=== PATIENT | female | born 1980 | race Caucasian/White ===

== ENCOUNTER 2022-04-25 09:48 | Emergency (ER) | payer OTHER, SELFPAY ==
[2022-04-25 09:51] VITALS: BP 136/69; PULSE 79; RESP 18; TEMP 36.5; O2SAT 95
--- NOTE | 2022-04-25 10:00 | DI.CT_ITS ---
Exam(s) CT HEAD WO EXAM: CT HEAD WO CLINICAL HISTORY: head pain s/p fall. TECHNIQUE: Imaging Protocol: Axial computed tomography images with coronal and sagittal reformatted images were created and reviewed COMPARISON: No exams were available for comparison FINDINGS: Ventricles and Extra axial spaces: Normal in size and morphology for the patient's age. Hemorrhage: None. Cerebral parenchyma: Normal. Midline shift: None. Brainstem/Cerebellum: Normal. Calvarium: Normal. Visualized Paranasal sinuses/Mastoids: Clear. Soft Tissues: Unremarkable. IMPRESSION: No acute intracranial process. RADIATION DOSE DELIVERED: 782.52mGy.cm Total DLP DATA REPOSITORY: All CT scans at this facility are submitted to the National Radiology Data Registry (NRDR) Dose Index Registry (DIR) with the [employer] (ACR). RADIATION OPTIMIZATION: All CT scans at this facility use at least one of these dose optimization te chniques: automated exposure control; mA and/or kV adjustment per patient size (includes targeted exa ms where dose is matched to clinical indication); or iterative reconstruction.
--- NOTE | 2022-04-25 10:09 | ED.GENADUL_ITS ---
Discharge Plan Disposition Patient Disposition: Home Condition: Stable Discharge Details Clinical Impression: Headache, Blunt head trauma ED Provider: Ton Smith Home Meds and New Rx's Prescriptions: Continued atorvastatin 40 mg tablet 1 tab PO HS Label Comments: TAKE 1 TABLET BY MOUTH AT BEDTIME clonidine HCl 0.1 mg tablet 1 tab PO BID PRN Label Comments: TAKE 1 TABLET BY MOUTH TWICE DAILY venlafaxine 75 mg capsule,extended release 24hr 1 cap PO DAILY Label Comments: TAKE 1 CAPSULE BY MOUTH DAILY gabapentin 600 mg tablet See Rx Instructions .ROUTE .COMPLEX Rx Instructions: Take 1 tab in AM, 2 tabs at HS lamotrigine 200 mg tablet 1 tab PO DAILY Label Comments: TAKE 1 TABLET BY MOUTH DAILY chlorzoxazone 500 mg tablet See Rx Instructions .ROUTE .COMPLEX Rx Instructions: Take 1 tab in the Am, 2 tabs at HS ondansetron HCl 4 mg tablet 1 tab PO Q8H PRN Label Comments: TAKE 1 TABLET BY MOUTH EVERY 8 HOURS NEEDED FOR NAUSEA OR VOMITING venlafaxine 150 mg capsule,extended release 24hr 1 cap PO DAILY Label Comments: TAKE 1 CAPSULE BY MOUTH DAILY lisinopril 10 mg tablet 1 tab PO DAILY losartan 25 mg tablet 1 tab PO DAILY Label Comments: TAKE 1 TABLET BY MOUTH ONCE DAILY hydroxyzine HCl 25 mg tablet 1 tab PO BID PRN Label Comments: TAKE 1 TABLET BY MOUTH TWICE DAILY NEEDED FOR ITCHING albuterol sulfate 90 mcg/actuation HFA aerosol inhaler 2 inh INHALATION 4-8XD PRN amitriptyline 100 mg tablet 1 tab PO QHS Label Comments: TAKE 1 TABLET BY MOUTH DAILY AT BEDTIME insulin lispro 100 unit/mL insulin pen See Rx Instructions .ROUTE .COMPLEX Label Comments: USE SLIDING SCALE DOSE AND INJECT SUBCUTANEOUSLY DIRECTED. MAXIMUM OF 14 UNITS 4 TIMES DAILY IF NEEDED Rx Instructions: sliding scale metoprolol tartrate 25 mg tablet 1 tab PO DAILY Label Comments: TAKE 1 TABLET BY MOUTH DAILY solifenacin 10 mg tablet 1 tab PO DAILY Label Comments: TAKE 1 TABLET BY MOUTH ONCE DAILY insulin glargine [Lantus Solostar U-100 Insulin] 100 unit/mL (3 mL) insulin pen 25 unit SUBCUT DAILY Label Comments: INJECT 25 UNITS SUBCUTANEOUSLY IN THE MORNING AT 9 AM oxycodone 10 mg tablet 1 tab PO BID PRN Label Comments: 10 mg orally 2 times per day As Needed for pain for 30 days Discharge Instructions Instructions: Head Injury (ED) Additional Instructions: your cat scan did not show concerning findings follow up with your primary care provider within 1 week if symptoms continue if you feel more ill, have persistent vomiting or severe worsening pain return to the emergency department Stand Alone Forms: Work Release Medical Decision Making 42 yo with hx of migraines, 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 Denies loc but has had a headache since and came here for an evaluation. Denies neck pain, chest pain, abdomen pain, dyspnea, fevers, chills. She arrives ambulatory speaking clearly, caox4 with no focal deficits. She localizes the pain to the frontal part of her head and has a small 1cm contusion of superior forehead. She has no stepoffs or other hematomas, perr, eomi, cn ii-xii intact, normal tm's, no midline neck tenderness. Suspect concussion and possible migraine. Will obtain ct head, treat with compazine and reassess. pt's pain resolved after compazine, ct head negative. Discussed with pt and stable for d/c, will f/u with pcp if pain continues, return precautions given Differential Diagnosis Differential Diagnosis: migraine, concussion, tbi Imaging Data Radiologic Study: Attestation: I personally reviewed and interpreted this imaging study as follows: Imaging: CT Scan Radiologist's impression: no acute findings HPI General Mode of arrival: ambulatory . Date/Time Provider Initiated Documentation: 04/25/22 09:48 . Limitations to Documentation: no limitations . Information obtained by: patient . History of Present Illness 42 year old F presents to the emergency department with the chief complaint of headache, described as moderate, Quality is described as aching, and is localized to the head. Patient reports no radiation. Patient started experiencing this day(s) (1) and it has been constant. No relieving factors improve symptom(s), No exacerbating factors reported . Patient notes other (nausea). Patient did receive the following treatments prior to arrival, none Related Data Home Medications Medication Instructions Recorded Confirmed albuterol sulfate 90 mcg/actuation 2 inh inhalation 4-8XD PRN 04/25/22 04/25/22 aerosol inhaler amitriptyline 100 mg tablet 1 tab PO QHS 04/25/22 04/25/22 atorvastatin 40 mg tablet 1 tab PO HS 04/25/22 04/25/22 chlorzoxazone 500 mg tablet See Rx Instructions .Route .COMPLEX 04/25/22 04/25/22 clonidine HCl 0.1 mg tablet 1 tab PO BID PRN 04/25/22 04/25/22 gabapentin 600 mg tablet See Rx Instructions .Route .COMPLEX 04/25/22 04/25/22 hydroxyzine HCl 25 mg tablet 1 tab PO BID PRN 04/25/22 04/25/22 insulin glargine 100 unit/mL (3 25 unit subcut DAILY 04/25/22 04/25/22 mL) subcutaneous pen (Lantus Solostar U-100 Insulin) insulin lispro 100 unit/mL See Rx Instructions .Route .COMPLEX 04/25/22 04/25/22 subcutaneous pen lamotrigine 200 mg tablet 1 tab PO DAILY 04/25/22 04/25/22 lisinopril 10 mg tablet 1 tab PO DAILY 04/25/22 04/25/22 losartan 25 mg tablet 1 tab PO DAILY 04/25/22 04/25/22 metoprolol tartrate 25 mg tablet 1 tab PO DAILY 04/25/22 04/25/22 ondansetron HCl 4 mg tablet 1 tab PO Q8H PRN 04/25/22 04/25/22 oxycodone 10 mg tablet 1 tab PO BID PRN 04/25/22 04/25/22 solifenacin 10 mg tablet 1 tab PO DAILY 04/25/22 04/25/22 venlafaxine 150 mg 1 cap PO DAILY 04/25/22 04/25/22 capsule,extended release 24 hr venlafaxine 75 mg capsule,extended 1 cap PO DAILY 04/25/22 04/25/22 release 24 hr Allergies Allergy/AdvReac Type Severity Reaction Status Date / Time albuterol [From Ventolin HFA] Allergy Severe Anaphylaxis Unverified 04/25/22 10:09 lithium Allergy Severe Other (See Unverified 04/25/22 10:09 Comment) Sulfa (Sulfonamide Allergy Severe Anaphylaxis Unverified 04/25/22 10:09 Antibiotics) General Stated Complaint: HeadInjury FREDIS: 4 Review of Systems All systems reviewed & are unremarkable except as noted in HPI and below Constitutional Constitutional: Denies chills, Denies fever(s) and Denies weakness Eyes Eyes: Denies loss of vision Cardiovascular Cardiovascular: Denies chest pain and Denies dyspnea Respiratory Respiratory: Denies cough and Denies dyspnea Gastrointestinal Gastrointestinal: Denies abdominal pain and Denies vomiting Integumentary/Breasts Skin/Breast: Denies rash Neurologic Neurologic: Denies loss of vision and Denies weakness Allergic/Immunologic Allergic/Immunologic: Denies urticaria PFSH All Active Problems (Updated 04/25/22 @ 11:02 by Ton Smith MD) Headache (Acute) Blunt head trauma (Acute) Social History Smoking/Tobacco Use Status: Current every day Tobacco Type: smokeless tobacco Smoking risk assessment performed?: Yes Alcohol Intake: current Alcohol Intake frequency: a few times a month Alcohol type: beer Substance use type: does not use Exam Const General: no acute distress Orientation: alert HENMT Head: normal to inspection Ears: external ears normal General nose exam: external nose normal Mouth: moist mucous membranes Eyes General: appearance normal, both eyes and all related structures Neck Neck: normal visual inspection Resp Effort & Inspection: normal respiratory effort and able to speak in complete sentences Auscultation: clear to auscultation bilaterally Cardio Rate: regular rate GI Palpation: soft and nontender Skin General skin exam: no rashes or lesions noted Neuro General: patient alert and patient oriented x3 Extrem General: normal to inspection Psych Mental Status: mental status grossly normal Course Vital Signs Vital signs: Vital Signs Temperature 36.5 C 04/25/22 09:51 Pulse 79 04/25/22 09:51 Respiratory Rate 18 04/25/22 09:51 Blood Pressure 136/69 04/25/22 09:51 Pulse Oximetry 95 04/25/22 09:51 Temperature 36.5 C 04/25/22 09:51 Temperature Source Temporal Artery Scan 04/25/22 09:51 Pulse 79 04/25/22 09:51 Respiratory Rate 18 04/25/22 09:51 Respiratory Effort 04/25/22 09:59 Respiratory Depth Normal 04/25/22 09:59 Respiratory Pattern Normal 04/25/22 09:59 Blood Pressure 136/69 04/25/22 09:51 Blood Pressure Position Supine 04/25/22 09:51 Pulse Oximetry 95 04/25/22 09:51 Oxygen Delivery Method Room Air 04/25/22 09:51 Oxygen Flow Rate 0 04/25/22 09:51 Pain Level 8 04/25/22 09:59 PAWSS Have you Been Recently Intoxicated or Drunk Within the Last 30 days?: No Have you Ever Experienced Previous Episodes of Alcohol Withdrawal?: No Have you ever Experienced Withdrawal Seizures?: No Have you ever Experienced Delirium Tremens(DT)s?: No Have you ever undergone Alcohol Rehabilitation Treatment (i.e, inpt ot outpatient treatment programs)?: No Have you ever Experienced Blackouts?: No Have you ever Combined Alcohol with other Downers within the last 90 days?: No Have you ever Combined Alcohol with any other Substance of Abuse during the last 90 days?: No Positive Blood Alcohol level on Presentation? [PCS.BAL]: No Evidence of Increased Autonomic Activity (i.e. HR>120, tremor, sweating, agitation, nausea)?: No Result: 0
[2022-04-25] MEDS: Normal Saline 1,000 ML 1000 ML IV (10:30)
[2022-04-25] MEDS: Prochlorperazine 10 MG/2 ML VIAL IVP (10:32)
[2022-04-25 12:18] VITALS: BP 127/67; PULSE 81; RESP 16; O2SAT 97
== END 2022-04-25 12:30 | disposition home or self-care (01) ==
LOC: ER 12:36
PROVIDERS: Emergency Provider Emergency Medicine; PCP Nurse Practitioner Family
DX: S09.8XXA Other specified injuries of head, initial encounter (principal); R51.9 Headache, unspecified; W22.01XA Walked into wall, initial encounter; Y99.0 Civilian activity done for income or pay
CPT/HCPCS: 96361; 96374; 99284; 70450; J0780

== ENCOUNTER 2022-05-07 19:37 | Emergency (ER) | payer MEDICAID, SELFPAY ==
[2022-05-07 19:44] VITALS: BP 147/101; PULSE 93; RESP 20; TEMP 36.6; O2SAT 99
--- NOTE | 2022-05-07 20:02 | W.ED.GENAD ---
Discharge Plan Disposition Patient Disposition: Home Condition: Stable Discharge Details Clinical Impression: Deliberate self-cutting Primary Care Provider: Fletcher Hutton ED Provider: Ton Smith Home Meds and New Rx's Prescriptions: Continued atorvastatin 40 mg tablet 1 tab PO HS Label Comments: TAKE 1 TABLET BY MOUTH AT BEDTIME clonidine HCl 0.1 mg tablet 1 tab PO BID PRN Label Comments: TAKE 1 TABLET BY MOUTH TWICE DAILY venlafaxine 75 mg capsule,extended release 24hr 1 cap PO DAILY Label Comments: TAKE 1 CAPSULE BY MOUTH DAILY gabapentin 600 mg tablet See Rx Instructions .ROUTE .COMPLEX Rx Instructions: Take 1 tab in AM, 2 tabs at HS lamotrigine 200 mg tablet 1 tab PO DAILY Label Comments: TAKE 1 TABLET BY MOUTH DAILY chlorzoxazone 500 mg tablet See Rx Instructions .ROUTE .COMPLEX Rx Instructions: Take 1 tab in the Am, 2 tabs at HS ondansetron HCl 4 mg tablet 1 tab PO Q8H PRN Label Comments: TAKE 1 TABLET BY MOUTH EVERY 8 HOURS NEEDED FOR NAUSEA OR VOMITING venlafaxine 150 mg capsule,extended release 24hr 1 cap PO DAILY Label Comments: TAKE 1 CAPSULE BY MOUTH DAILY lisinopril 10 mg tablet 1 tab PO DAILY losartan 25 mg tablet 1 tab PO DAILY Label Comments: TAKE 1 TABLET BY MOUTH ONCE DAILY hydroxyzine HCl 25 mg tablet 1 tab PO BID PRN Label Comments: TAKE 1 TABLET BY MOUTH TWICE DAILY NEEDED FOR ITCHING albuterol sulfate 90 mcg/actuation HFA aerosol inhaler 2 inh INHALATION 4-8XD PRN amitriptyline 100 mg tablet 1 tab PO QHS Label Comments: TAKE 1 TABLET BY MOUTH DAILY AT BEDTIME insulin lispro 100 unit/mL insulin pen See Rx Instructions .ROUTE .COMPLEX Label Comments: USE SLIDING SCALE DOSE AND INJECT SUBCUTANEOUSLY DIRECTED. MAXIMUM OF 14 UNITS 4 TIMES DAILY IF NEEDED Rx Instructions: sliding scale metoprolol tartrate 25 mg tablet 1 tab PO DAILY Label Comments: TAKE 1 TABLET BY MOUTH DAILY solifenacin 10 mg tablet 1 tab PO DAILY Label Comments: TAKE 1 TABLET BY MOUTH ONCE DAILY insulin glargine [Lantus Solostar U-100 Insulin] 100 unit/mL (3 mL) insulin pen 25 unit SUBCUT DAILY Label Comments: INJECT 25 UNITS SUBCUTANEOUSLY IN THE MORNING AT 9 AM oxycodone 10 mg tablet 1 tab PO BID PRN Label Comments: 10 mg orally 2 times per day As Needed for pain for 30 days Discharge Instructions Additional Instructions: Follow up with your primary care provider within 1 week If you feel more ill or have worsening thoughts of self harm return to the emergency department for evaluation Medical Decision Making 42 yo female with hx of bipolar and ptsd comes in after she disclosed she self cut her left forearm last week and her work sent her here for an evaluation. She states she was upset last week and self cut which she has done in the past and was upset at the time. She is not currently suicidal and denies having thoughts of self harm. She arrives stable speaking clearly and calmly, caox4, normal gait, no focal motor or sensation deficits. Given lack of complaints and reassuring exam do not feel labs indicated and is medically cleared to speak with mental health as unlikely to have underlying medical cause for her self cutting a week ago. Her left forearm wound is already healed and has no surrouding erythema or purulence. [facility] and cleared to go home, no si/hi, will reach out to her as an outpatient. Pt instructed to f/u with pcp as well and return precautions given Differential Diagnosis Differential Diagnosis: depression, self cutting HPI General Mode of arrival: ambulatory. Date/Time Provider Initiated Documentation: 05/07/22 19:38. Limitations to Documentation: no limitations. Information obtained by: patient. History of Present Illness 42 year old F presents to the emergency department with the chief complaint of cut forearm last week, described as mild, Patient started experiencing this week(s) (1) No relieving factors improve symptom(s), No exacerbating factors reported . Patient did receive the following treatments prior to arrival, none Related Data Home Medications Medication Instructions Recorded Confirmed albuterol sulfate 90 mcg/actuation 2 inh inhalation 4-8XD PRN 04/25/22 05/07/22 aerosol inhaler amitriptyline 100 mg tablet 1 tab PO QHS 04/25/22 05/07/22 atorvastatin 40 mg tablet 1 tab PO HS 04/25/22 05/07/22 chlorzoxazone 500 mg tablet See Rx Instructions .Route .COMPLEX 04/25/22 05/07/22 clonidine HCl 0.1 mg tablet 1 tab PO BID PRN 04/25/22 05/07/22 gabapentin 600 mg tablet See Rx Instructions .Route .COMPLEX 04/25/22 05/07/22 hydroxyzine HCl 25 mg tablet 1 tab PO BID PRN 04/25/22 05/07/22 insulin glargine 100 unit/mL (3 25 unit subcut DAILY 04/25/22 05/07/22 mL) subcutaneous pen (Lantus Solostar U-100 Insulin) insulin lispro 100 unit/mL See Rx Instructions .Route .COMPLEX 04/25/22 05/07/22 subcutaneous pen lamotrigine 200 mg tablet 1 tab PO DAILY 04/25/22 05/07/22 lisinopril 10 mg tablet 1 tab PO DAILY 04/25/22 05/07/22 losartan 25 mg tablet 1 tab PO DAILY 04/25/22 05/07/22 metoprolol tartrate 25 mg tablet 1 tab PO DAILY 04/25/22 05/07/22 ondansetron HCl 4 mg tablet 1 tab PO Q8H PRN 04/25/22 05/07/22 oxycodone 10 mg tablet 1 tab PO BID PRN 04/25/22 05/07/22 solifenacin 10 mg tablet 1 tab PO DAILY 04/25/22 05/07/22 venlafaxine 150 mg 1 cap PO DAILY 04/25/22 05/07/22 capsule,extended release 24 hr venlafaxine 75 mg capsule,extended 1 cap PO DAILY 04/25/22 05/07/22 release 24 hr Allergies Allergy/AdvReac Type Severity Reaction Status Date / Time albuterol [From Ventolin HFA] Allergy Severe Anaphylaxis Unverified 05/07/22 19:51 lithium Allergy Severe Other (See Unverified 05/07/22 19:51 Comment) Sulfa (Sulfonamide Allergy Severe Anaphylaxis Unverified 05/07/22 19:51 Antibiotics) General Stated Complaint: PsychEval FREDIS: 2 Review of Systems All systems reviewed & are unremarkable except as noted in HPI and below Constitutional Constitutional: Denies chills, Denies fever(s) and Denies weakness Cardiovascular Cardiovascular: Denies chest pain and Denies dyspnea Respiratory Respiratory: Denies cough and Denies dyspnea Gastrointestinal Gastrointestinal: Denies abdominal pain, Denies nausea and Denies vomiting Musculoskeletal Musculoskeletal: Denies joint swelling Neurologic Neurologic: Denies weakness Endocrine Endocrine: Denies heat intolerance PFSH All Active Problems (Updated 05/07/22 @ 21:00 by Ton Smith MD) Headache (Acute) Blunt head trauma (Acute) Deliberate self-cutting (Acute) Social History Smoking/Tobacco Use Status: Current every day Tobacco Type: smokeless tobacco Smoking risk assessment performed?: Yes Alcohol Intake: former Drug use: Never Substance use type: does not use Do you feel safe at home: Yes Do you feel safe in your relationship?: Yes Exam Const General: no acute distress Orientation: alert HENMT Head: normal to inspection Ears: external ears normal General nose exam: external nose normal Mouth: moist mucous membranes Eyes General: appearance normal, both eyes and all related structures Neck Neck: normal visual inspection Resp Effort & Inspection: normal respiratory effort and able to speak in complete sentences Cardio Rate: regular rate Skin General skin exam: no rashes or lesions noted Neuro General: patient alert and patient oriented x3 Extrem General: full ROM and capillary refill normal Psych Mental Status: mental status grossly normal Course Vital Signs Vital signs: Vital Signs Temperature 36.6 C 05/07/22 19:44 Pulse 93 H 05/07/22 19:44 Respiratory Rate 20 05/07/22 19:44 Blood Pressure 147/101 H 05/07/22 19:44 Pulse Oximetry 99 05/07/22 19:44 Temperature 36.6 C 05/07/22 19:44 Temperature Source Oral 05/07/22 19:44 Pulse 93 H 05/07/22 19:44 Respiratory Rate 20 05/07/22 19:44 Respiratory Effort 05/07/22 19:53 Blood Pressure 147/101 H 05/07/22 19:44 Blood Pressure Position Sitting 05/07/22 19:44 Pulse Oximetry 99 05/07/22 19:44 Oxygen Delivery Method Room Air 05/07/22 19:44 Oxygen Flow Rate 0 05/07/22 19:44
--- NOTE | 2022-05-07 22:20 | PDOC.MHCN ---
Date of service: 05/07/22 Time of Service: 21:05 PHQ-9 Over the last 2 weeks, how often have you been bothered by any of the following problems? 1. Little interest or pleasure in doing things: nearly every day 2. Feeling down, depressed, or hopeless: nearly every day 3. Trouble falling or staying asleep, or sleeping too much: several days 4. Feeling tired or having little energy: not at all 5. Poor appetite or overeating: nearly every day 6. Feeling bad about yourself - or that you are a failure or have let yourself and your family down: nearly every day 7. Trouble concentrating on things, such as reading the newspaper or watching television: not at all 8. Moving or speaking so slowly that other people could have noticed? - Or the opposite - being so fidgety or restless that you have been moving around a lot more than usual: not at all 9. Thoughts that you would be better off or of hurting yourself in some way: more than half the days Total score: 15 If you checked off any problems, how difficult have these problems made it for you to do your work, take care of things at home, or get along with other people?: somewhat difficult PHQ-9 Results: Positive Source: Developed by Drs. Hector Roper, Echo Oliver, Johnny Tong and colleagues, with an educational wayne from [employer]. Suicide Severity Rate CSSRS Have you wished you were or wished you could go to sleep and not wake up?: No Have you actually had any thoughts of killing yourself?: No CSSRS3 Have you ever done anything, started to do anything or prepared to do anything to end your life?: Yes CSSRS4 Was this within the past three months?: No Screening Score Total Score: 2 Screening: Positive Mental Health Emergency Note Release [facility] release signed:: No Reason for Visit Jaqueline presented to [facility] due to her job, [employer] being concerned about her and her well being. In the last 2 weeks has the pt presented for ES prior to today?: Unknown Client Information Client is: New Well Housed: Yes Non Suicidal Self Injury Current: Yes, Jaqueline reports she cut herself while experiencing castanon fatigue from her long hours. Jaqueline also reports a tree branch fell and snapped her in the face. History: yes, Jaqueline has a history of SI, attempts, and NSSI. Safety Risk/Harm to Self or Others Current Ideation to Harm Self or Others: No Risk: Does risk to harm exist?: No Risk: N/A Duty to warn indicated: No Asssessment/Mental Status Appearance: Unremarkable Attitude: Cooperative Behavior: Unremarkable Speech: Normal Affect: Cogruent with mood Mood: Anxious Thought process: Unremarkable Hallucinations: No evidence Delusions: No evidence Attention: Unremarkable Perception: Not impaired Orientation: Fully orientated Memory: Intact Insight: Good Judgement: Fair Neurovegetative Symptoms Sleep: Decrease (Jaqueline reports poor sleep. ) Appetitie: Decrease (Jaqueline reports she is not a big eater but eats enough to keep her diabetes in line.) Interests: No change Energy: No change Libido: Not applicable Substance Use: Do you use nicotine?: No Have you used substances in the last 7 days?: No Additional Issues: Assaultive/Threatening Behavior: No Medical Concerns: No Client engaged in active self harm w/weapon: No Child reported abuse/neglect: No Voluntarily presenting for services: Yes Domestic violence is a concern: No Extreme Psychosis or extreme behavior is present: No Impression Jaqueline presented to the emergency room due to her job, [employer], being concerned for her well being. Jaqueline reports she does not want to end her life but she is getting evaluated to be able to keep her job. Jaqueline reports being diagnosed with bipolar, PTSD, and anxiety. Jaqueline reports continued poor sleep and appetite but is able to maintain her diabetes. Jaqueline disclosed she has previous suicide attempts from when she was younger as she used to struggle more with her ideation. 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 At this time, Jaqueline is not presenting as a danger to herself and others and will be discharged back to the community. Jaqueline will complete follow up with her PCP by checking the status of her therapy referral. Jaqueline was provided [facility] and [phone] if needed. [facility] [phone], Community therapist and [facility] Plan/Disposition Recommended Disposition: Therapy. Plan: Jaqueline will be discharged on a safety plan. Jaqueline is already on a waitlist for therapy with her PCP in [place] and reports she does not wish to get on our waitlist. Jaqueline was provided [facility] emergency line and [phone] and will call if she needs support. Person reported agreement to plan: Yes Reports/communication Outcome discussed with: ED/Personnel
== END 2022-05-07 21:15 | disposition home or self-care (01) ==
PROVIDERS: Emergency Provider Emergency Medicine; PCP Nurse Practitioner Family
DX: R45.88 Nonsuicidal self-harm (principal)
CPT/HCPCS: 99283